=== PATIENT | male | born 1965 | race Caucasian/White ===

== ENCOUNTER 2018-03-30 14:07 | Emergency (ER) | payer MEDICAID ==
[~2018-03-30] VITALS: Ht 170.2 cm; Wt 44.5 kg
[~2018-03-30 14:07] MED LIST: COL100 PO; NORCO1 TA2 PO
[2018-03-30 14:16] VITALS: BP 126/67; Ht 170.2 cm; Wt 44.5 kg
== END 2018-03-30 15:11 | disposition home or self-care (01) ==
LOC: ED 14:07
DX: K04.7 Periapical abscess without sinus (principal); K02.9 Dental caries, unspecified; Z88.8 Allergy status to other drugs, medicaments and biological substances; Z90.49 Acquired absence of other specified parts of digestive tract
CPT/HCPCS: J2001